=== PATIENT | male | born 1950 | race Caucasian/White ===

== ENCOUNTER → 2016-10-30 | Outpatient (CLI) | payer OTHER ==
[~2016-10-30] MED LIST: AMOX250C3 PO; SULF800T23 PO
[2016-10-30 14:52] LABS: BLOOD UREA NITROGEN 21 mg/dl (7-18); CALCIUM 9.2 mg/dl (8.5-10.1); CARBON DIOXIDE 27 mmol/L (21-32); CHLORIDE 108 mmol/L (98-107); GLUCOSE 80 mg/dl (70-99); POTASSIUM 4.3 mmol/L (3.5-5.1); SODIUM 144 mmol/L (136-145)
== END | disposition home or self-care (01) ==
LOC: C.LAB1850 12:35
PROVIDERS: ATTEND Internal Medicine
DX: N28.9 Disorder of kidney and ureter, unspecified (principal)

== ENCOUNTER → 2017-03-03 | Outpatient (CLI) | payer OTHER ==
--- NOTE | 2017-03-03 11:18 | DIAGNOSTIC IMAGING REPORT ---
PET/CT CLINICAL HISTORY: Malignant neoplasm of the tongue. COMPARISON STUDY: PET/CT dated 07/17/2015. CT scan of the neck and chest dated 07/03/2015. TECHNIQUE: One hour following the IV administration of 14.26 mCi of F-18 FDG, PET/CT examination was performed from the vertex through the bony pelvis. Noncontrast CT is performed for the purposes of anatomic correlation and attenuation correction. Note that this does not reflect a diagnostic CT examination. Images were reviewed on a separate [employer] independent workstation. Fused images were obtained. Standard uptake values reported are maximum values within the region of interest expressed in gm/mL. FINDINGS: PET FINDINGS: Head and neck: There is expected physiologic activity within the visualized brain parenchyma at the skull base and the salivary glands. Low level pharyngeal activity is likely within physiologic limits. There are no pathologically enlarged or FDG avid cervical lymph nodes. Thorax: Evaluation of the thorax demonstrates expected physiologic myocardial activity. Abdomen and pelvis: There is expected activity within the liver, spleen, kidneys, renal collecting system, and bladder. Low-level bowel activity is likely within physical limits. Unenhanced CT images: Brain parenchyma is normal as visualized noting mild age-related involutional change. The bony orbits are intact and the orbital contents are normal in appearance. There is a small retention cyst in the right maxillary antrum. The paranasal sinuses are otherwise clear. There is a small left mastoid effusion. The right mastoid air cells are clear. The salivary and thyroid glands are normal as visualized. There are postoperative changes from left-sided neck dissection. Atherosclerotic calcification is seen in the carotid bulbs. The heart is mildly enlarged and without pericardial effusion. There are coronary artery calcifications. A tiny hiatal hernia is noted. The thoracic aorta is normal in caliber. No mediastinal, hilar, or axillary lymphadenopathy is seen. There is no airspace consolidation or pleural effusion. No concerning pulmonary lesion is seen. The trachea and central airways are clear. The unenhanced liver, gallbladder, spleen, pancreas, and adrenal glands are grossly normal as imaged. The kidneys demonstrate cortical atrophy and are without hydronephrosis. The abdominal aorta is normal in course and caliber noting mild atherosclerotic calcification. There is no bowel obstruction. There is moderate diverticulosis of the sigmoid colon without CT evidence of acute diverticulitis. Colonic fecal retention is observed. A normal appendix is identified. There is no intraperitoneal free air or abdominal ascites. A fat-containing umbilical hernia is noted. There is no abdominal, pelvic, or inguinal lymphadenopathy. Surgical clips are noted along the spermatic cord bilaterally. The prostate gland is mildly enlarged. The bladder is normal as visualized. No lytic or blastic lesions are identified. Mild degenerative change and scoliosis are noted throughout the spine. Arthritic change is also seen in the shoulders. IMPRESSION: 1. There is no evidence of FDG avid recurrent or metastatic disease. 2. There are postoperative changes from left-sided neck dissection. 3. The lungs are clear. 4. Sigmoid diverticulosis without CT evidence of acute diverticulitis. 5. Mild cardiomegaly. 6. Additional findings as above. Electronically signed by: Abdulaziz Barragan M.D. 03/03/2017 11:16 AM Dictated Date/Time: 03/03/2017 11:05 AM
== END | disposition home or self-care (01) ==
LOC: C.PET 08:33
PROVIDERS: ATTEND Otolaryngology
DX: C01 Malignant neoplasm of base of tongue (principal)